=== PATIENT | male | born 1980 | race Caucasian/White ===

== ENCOUNTER 2018-08-30 14:52 | Inpatient (IN) | payer OTHER, MEDICAID ==
[~2018-08-30] VITALS: Ht 182.9 cm; Wt 80.0 kg
[~2018-08-30 14:52] MED LIST: AMLO10TA PO; LORA2TAB PO; OMEP20CA11 PO; OXYC-658 MT; PROP60CA6 PO; RIVA20TA PO; SIMV20TA5 PO; VENL75CA55 PO; ZOLP10TA PO
[2018-08-30] MEDS ORDERED: normal saline 1000ML IV soln IVB ONE (15:05)
[2018-08-30] MEDS ORDERED: LORazepam 2 mg/ml vial IV ONE ×2 (15:05→15:30)
[2018-08-30 15:21] LABS: CLARITY,URINE SLIGHTLY CLOUDY (Clear); GLUCOSE, URINE NEGATIVE (Neg); KETONES,URINE 40 mg/dl (Neg); LEUKOCYTE ESTERASE ,URINE NEGATIVE (Neg); NITRITES, URINE NEGATIVE (Neg); OCCULT BLOOD,URINE NEGATIVE (Neg); PH,URINE 5.5 (4.8-8.0); PROTEIN,URINE 30 mg/dl (Neg)
[2018-08-30 15:30] LABS: COLOR,URINE DARK YELLOW (Yellow); UA COLLECTION TYPE STRAIGHT CATH
[2018-08-30 15:33] LABS: AMORPHOUS URATES 1+; BACTERIA,URINE NONE SEEN /HPF (Neg); MUCUS STRANDS MANY /LPF (Neg); RBC,URINE NONE SEEN /HPF (0-2); SQUAMOUS EPITHELIAL CELL,UR FEW /LPF (FEW); WBC,URINE 0-4 /HPF (0-4)
[2018-08-30 15:35] LABS: URINE AMPHETAMINE SCREEN POSITIVE (Neg); URINE BARBITUATE SCREEN NEGATIVE (Neg); URINE BENZODIAZEPINES SCREEN NEGATIVE (Neg); URINE CANNABINOID SCREEN NEGATIVE (Neg); URINE COCAINE SCREEN NEGATIVE (Neg); URINE METHADONE SCREEN NEGATIVE (Neg); URINE OPIATE SCREEN NEGATIVE (Neg); URINE PHENCYCLIDINE SCREEN NEGATIVE (Neg)
[2018-08-30 15:35] LABS: BASOPHILS # (AUTO) 0.1 X10'3 (0-0.2); BASOPHILS % (AUTO) 0.4 % (0-1); EOSINOPHILS # (AUTO) 0.1 X10'3 (0-0.9); EOSINOPHILS % (AUTO) 0.5 % (0-6); HEMATOCRIT 47.6 % (42.0-52.0); HEMOGLOBIN 15.5 g/dl (14.0-17.9); LYMPHOCYTES # (AUTO) 1.1 X10'3 (1.1-4.8); LYMPHOCYTES % (AUTO) 6.4 % (21-51); MEAN CORPUSCULAR HEMOGLOBIN 28.3 PG (27.0-31.0); MEAN CORPUSCULAR HGB CONC 32.6 g/dL (33.0-36.5); MEAN CORPUSCULAR VOLUME 86.8 FL (78-98); MEAN PLATELET VOLUME 8.5 FL (7.4-10.4); MONOCYTES # (AUTO) 1.2 X10'3 (0-0.9); MONOCYTES % (AUTO) 7.2 % (2-12); NEUTROPHILS # (AUTO) 14.5 X10'3 (1.8-7.7); NEUTROPHILS % (AUTO) 85.5 % (42-75); PLATELET COUNT 376 X10'3 (140-440); RED BLOOD COUNT 5.49 X10'6 (4.70-6.10); RED CELL DISTRIBUTION WIDTH 15.3 % (11.5-14.5)
[2018-08-30 15:43] LABS: PARTIAL THROMBOPLASTIN TIME 26 SECONDS (22-32)
[2018-08-30 15:45] LABS: ALANINE AMINOTRANSFERASE 33 U/L (12-78); ALBUMIN 4.1 G/DL (3.4-5.0); ALBUMIN/GLOBULIN RATIO 0.8 (1.1-1.5); ALKALINE PHOSPHATASE 121 IU/L (46-116); ANION GAP 18 (8-16); ASPARTATE AMINO TRANSFERASE 14 U/L (10-37); BILIRUBIN,TOTAL 0.8 MG/DL (0.1-1.0); BLOOD UREA NITROGEN 39 MG/DL (7-18); BUN/CREATININE RATIO 33.9 (5.4-32.0); CALCIUM 9.9 MG/DL (8.5-10.1); CHLORIDE 101 MMOL/L (99-107); CREATININE 1.15 MG/DL (0.60-1.10); GLUCOSE 151 MG/DL (70-104); POTASSIUM 3.9 MMOL/L (3.5-5.1); SODIUM 139 MMOL/L (135-145); TOTAL CARBON DIOXIDE 19.6 MMOL/L (24-32); TOTAL PROTEIN 9.3 G/DL (6.4-8.2); eGFR 71 ML/MIN
[2018-08-30 15:49] LABS: ETHANOL < 0.010 GM/DL (0.0-0.010); TROPONIN I < 0.04 NG/ML (0.0-0.05)
[2018-08-30] MEDS ORDERED: normal saline 1000ML IV soln IV ONE (15:55)
[2018-08-30] MEDS ORDERED: CefTRIAXone/D5W-Rocephin 1gm 50 ML IV ONE (17:30)
[2018-08-30] MEDS ORDERED: NO HOME MEDS (17:45)
[2018-08-30] MEDS ORDERED: magnesium 4gm in 100ml NS 100 ML IV PRN (18:00)
[2018-08-30] MEDS ORDERED: potassium Cl 20 mEq SR tablet PO PRN (18:00)
[2018-08-30] MEDS ORDERED: magnesium Cl slow-release 64mg tablet PO PRN (18:00)
[2018-08-30] MEDS ORDERED: bisacodyl 10mg suppository rectal RC PRN (18:00)
[2018-08-30] MEDS ORDERED: potassium Cl 40MEQ/NS 500ml 500 ML IV PRN (18:00)
[2018-08-30] MEDS ORDERED: mag hydrox/Alum hydrox/simeth 30ml oral suspension PO PRN (18:00)
[2018-08-30] MEDS ORDERED: LORazepam 2 mg/ml vial IV PRN (18:00)
[2018-08-30] MEDS ORDERED: potassium CL 10mEq/100ml bag 100 ML IV PRN (18:00)
[2018-08-30] MEDS ORDERED: ondansetron/PF 4mg/2ml inj IV PRN (18:00)
[2018-08-30] MEDS ORDERED: metoclopramide 5 mg/ml inj IV PRN (18:00)
[2018-08-30] MEDS ORDERED: magnesium 2GM in 50ml NS 50 ML IV PRN (18:00)
[2018-08-30] MEDS ORDERED: magnesium hydroxide 30ml (MOM) UD suspension PO PRN (18:00)
[2018-08-30] MEDS ORDERED: acetaminophen 325mg tablet PO PRN ×2 (18:00)
[2018-08-30] MEDS: normal saline 1000ml 1,000 ML IV SCH (18:45)
[2018-08-30 19:50] VITALS: BP 114/73
--- NOTE | 2018-08-30 19:50 | NUR ---
Pt arrived with guards x2 shacked to bed. Pt ambulated to bed with min assist. Eye contact made, pt able to scoot self up in bed. no motor defecits noted, seems like he prefers not to speak.
[2018-08-30 22:00] VITALS: BP 116/69
[2018-08-31] MEDS: normal saline 1000ml 1,000 ML IV SCH ×3 (01:57→18:00)
[2018-08-31 06:00] VITALS: BP 123/74
--- NOTE | 2018-08-31 06:09 | NUR ---
received report from louisa alvarado
--- NOTE | 2018-08-31 06:18 | NUR ---
REPORT GIVEN TO VAISHNAVI SANCHEZ.
[2018-08-31 06:54] LABS: BASOPHILS % (AUTO) 0.3 % (0-1); EOSINOPHILS # (AUTO) 0.2 X10'3 (0-0.9); EOSINOPHILS % (AUTO) 2.5 % (0-6); HEMATOCRIT 40.1 % (42.0-52.0); HEMOGLOBIN 13.1 g/dl (14.0-17.9); LYMPHOCYTES # (AUTO) 2.2 X10'3 (1.1-4.8); LYMPHOCYTES % (AUTO) 22.5 % (21-51); MEAN CORPUSCULAR HEMOGLOBIN 28.3 PG (27.0-31.0); MEAN CORPUSCULAR HGB CONC 32.6 g/dL (33.0-36.5); MEAN PLATELET VOLUME 8.6 FL (7.4-10.4); MONOCYTES # (AUTO) 0.8 X10'3 (0-0.9); MONOCYTES % (AUTO) 8.3 % (2-12); NEUTROPHILS # (AUTO) 6.5 X10'3 (1.8-7.7); NEUTROPHILS % (AUTO) 66.4 % (42-75); PLATELET COUNT 285 X10'3 (140-440); RED BLOOD COUNT 4.61 X10'6 (4.70-6.10); RED CELL DISTRIBUTION WIDTH 15.3 % (11.5-14.5); WHITE BLOOD COUNT 9.8 X10'3 (4.5-11.0)
[2018-08-31 07:06] LABS: ALANINE AMINOTRANSFERASE 23 U/L (12-78); ALBUMIN 3.1 G/DL (3.4-5.0); ALBUMIN/GLOBULIN RATIO 0.8 (1.1-1.5); ALKALINE PHOSPHATASE 88 IU/L (46-116); ANION GAP 11 (8-16); ASPARTATE AMINO TRANSFERASE 13 U/L (10-37); BILIRUBIN,TOTAL 0.5 MG/DL (0.1-1.0); BLOOD UREA NITROGEN 27 MG/DL (7-18); CALCIUM 8.6 MG/DL (8.5-10.1); CHLORIDE 109 MMOL/L (99-107); CREATININE 0.71 MG/DL (0.60-1.10); GLUCOSE 81 MG/DL (70-104); MAGNESIUM 2.5 MG/DL (1.5-2.4); PHOSPHORUS 3.4 MG/DL (2.3-4.5); POTASSIUM 3.7 MMOL/L (3.5-5.1); SODIUM 142 MMOL/L (135-145); TOTAL CARBON DIOXIDE 21.7 MMOL/L (24-32); TOTAL PROTEIN 7.1 G/DL (6.4-8.2); eGFR > 90 ML/MIN
[2018-08-31] MEDS: K and/or MAG REPLACEMENT MC SCH (08:00)
[2018-08-31] MEDS: CefTRIAXone/D5W-Rocephin 1gm 50 ML IV SCH (08:37)
[2018-08-31] MEDS: enoxaparin 40mg/0.4ml syringe SQ SCH (08:39)
[2018-08-31 10:00] VITALS: BP 129/77
--- NOTE | 2018-08-31 10:54 | NUR ---
bladder scan pt per md orders scanner showed 792 ml in bladder
[2018-08-31 11:19] VITALS: BP 129/78
--- NOTE | 2018-08-31 16:57 | NUR ---
pt bladder scanned per MD orders, showed 384 ml
[2018-08-31] MEDS ORDERED: LIDOcaine 2% 10ml TOPICAL JELLY (Urojet) MM ONE (17:50)
[2018-08-31 18:47] VITALS: BP 129/79
[2018-08-31] MEDS: lactobacillus rhamnosus 10,000 MMU CELLS/CAPSULE PO SCH (19:57)
--- NOTE | 2018-08-31 20:26 | NUR ---
Patient in room [facility] 4016. I have received report from VAISHNAVI Gu and had the opportunity to ask questions and assume patient care. Addendum: 08/31/18 at 2025 by Hayde Lin RN Amended: Links added.
[2018-08-31 22:23] VITALS: BP 128/83
[2018-09-01] MEDS: normal saline 1000ml 1,000 ML IV SCH ×3 (02:00→16:13)
[2018-09-01 05:17] VITALS: BP 139/79
[2018-09-01 06:04] LABS: BASOPHILS % (AUTO) 0.6 % (0-1); EOSINOPHILS # (AUTO) 0.3 X10'3 (0-0.9); HEMATOCRIT 39.3 % (42.0-52.0); HEMOGLOBIN 12.6 g/dl (14.0-17.9); LYMPHOCYTES # (AUTO) 2.1 X10'3 (1.1-4.8); LYMPHOCYTES % (AUTO) 25.2 % (21-51); MEAN CORPUSCULAR HEMOGLOBIN 27.9 PG (27.0-31.0); MEAN CORPUSCULAR VOLUME 87.3 FL (78-98); MEAN PLATELET VOLUME 8.4 FL (7.4-10.4); MONOCYTES # (AUTO) 0.7 X10'3 (0-0.9); MONOCYTES % (AUTO) 8.9 % (2-12); NEUTROPHILS # (AUTO) 5.2 X10'3 (1.8-7.7); NEUTROPHILS % (AUTO) 62.3 % (42-75); PLATELET COUNT 257 X10'3 (140-440); RED CELL DISTRIBUTION WIDTH 14.4 % (11.5-14.5); WHITE BLOOD COUNT 8.4 X10'3 (4.5-11.0)
--- NOTE | 2018-09-01 06:19 | NUR ---
Problems reprioritized. Patient report given, questions answered & plan of care reviewed with VAISHNAVI Anaya. Addendum: 09/01/18 at 0619 by Hayde Lin RN Amended: Links added.
[2018-09-01 06:35] LABS: ALANINE AMINOTRANSFERASE 23 U/L (12-78); ALBUMIN 2.9 G/DL (3.4-5.0); ALBUMIN/GLOBULIN RATIO 0.8 (1.1-1.5); ALKALINE PHOSPHATASE 82 IU/L (46-116); ANION GAP 12 (8-16); ASPARTATE AMINO TRANSFERASE 14 U/L (10-37); BILIRUBIN,TOTAL 0.5 MG/DL (0.1-1.0); BLOOD UREA NITROGEN 14 MG/DL (7-18); BUN/CREATININE RATIO 20.6 (5.4-32.0); CALCIUM 8.3 MG/DL (8.5-10.1); CHLORIDE 106 MMOL/L (99-107); CREATININE 0.68 MG/DL (0.60-1.10); GLUCOSE 90 MG/DL (70-104); MAGNESIUM 2.2 MG/DL (1.5-2.4); PHOSPHORUS 3.5 MG/DL (2.3-4.5); POTASSIUM 3.3 MMOL/L (3.5-5.1); SODIUM 140 MMOL/L (135-145); TOTAL PROTEIN 6.6 G/DL (6.4-8.2); eGFR > 90 ML/MIN
[2018-09-01] MEDS: K and/or MAG REPLACEMENT MC SCH ×2 (06:51→06:52)
[2018-09-01] MEDS: CefTRIAXone/D5W-Rocephin 1gm 50 ML IV SCH (08:32)
[2018-09-01] MEDS: lactobacillus rhamnosus 10,000 MMU CELLS/CAPSULE PO SCH ×2 (08:33→19:46)
[2018-09-01] MEDS: enoxaparin 40mg/0.4ml syringe SQ SCH (08:33)
[2018-09-01 10:00] VITALS: BP 136/89
--- NOTE | 2018-09-01 15:24 | NUR ---
discharge orders received for this patient.
--- NOTE | 2018-09-01 15:39 | NUR ---
called to give report to medical unit at [facility], no answer , voicemail left for RN. awaiting return phone call. Updated patient and guard at the bedside on POC
[2018-09-01] MEDS: potassium Cl 20 mEq SR tablet PO PRN ×2 (15:49→19:46)
[2018-09-01 18:00] VITALS: BP 122/85
--- NOTE | 2018-09-01 18:05 | NUR ---
Patient in room [facility]TH[facility] 4016. I have received report from VAISHNAVI Anaya and had the opportunity to ask questions and assume patient care.
--- NOTE | 2018-09-01 19:52 | NUR ---
left message at nurses station at the group home to give report for patient. voicemail is only option. [phone] is intake phone number, they transfer to nurses station.
--- NOTE | 2018-09-01 20:49 | NUR ---
Patient report given to [facility] nurse Tiffanie.
== END 2018-09-01 21:14 | DRG 917 ==
LOC: EEVIPCON 14:52 → ER 14:52 → ORTHO 4S 19:21 → CMPBEDREQ 19:48
PROVIDERS: ADMIT Family Medicine; ATTEND Family Medicine
DX: T43.621A Poisoning by amphetamines, accidental (unintentional), initial encounter (principal); G92 Toxic encephalopathy; N17.9 Acute kidney failure, unspecified; E87.2 Acidosis; D72.829 Elevated white blood cell count, unspecified; E86.0 Dehydration; K80.20 Calculus of gallbladder without cholecystitis without obstruction; R00.0 Tachycardia, unspecified; R73.9 Hyperglycemia, unspecified; R74.0 Nonspecific elevation of levels of transaminase and lactic acid dehydrogenase [LDH]; E87.6 Hypokalemia; F15.10 Other stimulant abuse, uncomplicated; I10 Essential (primary) hypertension; Y92.89 Other specified places as the place of occurrence of the external cause; Z86.718 Personal history of other venous thrombosis and embolism
CPT/HCPCS: 36415; 70450; 71045; 80053; 80305; 80320; 81001; 82140; 83605; 83735; 84100; 84145; 84484; 85025; 85610; 85730; 87040; 87081; 93005; 96365; 96375; 96376; 99285; G0378; J0696; J1650; J2060; J7030